=== PATIENT | female | born 1965 | race Caucasian/White ===

== ENCOUNTER 2018-02-01 13:58 | Outpatient (CLI) | payer OTHER | END 2018-02-01 13:59 | disposition home or self-care (01) | LOC: BICMAMMO 13:58 | PROVIDERS: ATTEND Family Medicine | DX: Z12.31 Encounter for screening mammogram for malignant neoplasm of breast (principal); Z13.820 Encounter for screening for osteoporosis; M81.0 Age-related osteoporosis without current pathological fracture; Z80.3 Family history of malignant neoplasm of breast | CPT/HCPCS: 77063; 77067; 77080 ==

== ENCOUNTER 2018-04-23 08:10 | Outpatient (CLI) | payer OTHER ==
--- NOTE | 2018-04-23 11:07 | MRI ---
MRI RIGHT FOREFOOT WITHOUT CONTRAST: INDICATIONS: Right forefoot pain. Concern for stress fracture. COMPARISON: Right foot radiograph dated 04/11/2018. FINDINGS: There is some stress reaction involving the mid shaft of the third metatarsal, without a visible frac ture line. There are subchondral fractures with edema involving the second and third metatarsal head s, which can also be seen with entities such as Freiberg's infraction. There is edema within the naa rounding soft tissues of the third metatarsal. There is mild edema involving the dorsal foot. The v isualized flexor and extensor tendons are normal appearing. No additional fracture is evident. Ther e are mild degenerative changes in the great toe MTP joint. The Lisfranc ligament is intact. The in trinsic foot musculature appears within normal limits. There are some edematous mass like changes se en within the third intermetatarsal head space, which can be seen with a Teague's neuroma, but also i ntermetatarsal bursitis. Recommend correlation with clinical exam. IMPRESSION: 1. Stress reaction involving the third metatarsal shaft with surrounding soft tissue edema. No visi ble fracture line is evident. 2. Subchondral minimally displaced fractures involving the second and third digit metatarsal heads. This can also be seen with entities such as Freiberg's infraction. 3. T2 hyperintense, T1 hypointense, lobular collection seen between the third and fourth metatarsal heads, measuring approximately 5 mm in its greatest axial dimension, which may reflect intermetatarsa l bursitis or Teague's neuroma. Recommend correlation with the clinical examination. 4. 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 POS: [facility]
== END 2018-04-23 08:11 | disposition home or self-care (01) ==
LOC: BICMRI 08:10
PROVIDERS: ATTEND Podiatrist Foot & Ankle Surgery
DX: M84.374A Stress fracture, right foot, initial encounter for fracture (principal); M92.71 Juvenile osteochondrosis of metatarsus, right foot; M19.071 Primary osteoarthritis, right ankle and foot